=== PATIENT | female | born 1995 | race Caucasian/White ===

== ENCOUNTER 2019-01-25 22:23 | Emergency (ER) | payer SELFPAY ==
[~2019-01-25] VITALS: Ht 175.3 cm; Wt 114.3 kg
[2019-01-25 22:25] VITALS: BP 131/70
[2019-01-25] MEDS ORDERED: HYDR-3165 PO (23:28)
[2019-01-25] MEDS ORDERED: CLIN150C14 PO (23:28)
--- NOTE | 2019-01-25 23:28 | PHYS DOC ---
Past History Past Medical History: Anemia Past Surgical History: Tonsillectomy Smoking: Non-smoker Alcohol Use: None Drug Use: None Adult General Chief Complaint Chief Complaint: ABSCESS HPI HPI Patient is a 24 year old female who presents with complaint of pain and swelling to the anterior neck. Patient noted pain and discomfort over the past 2 days. Noted that there was a small knot below her chin on her anterior neck that increased in size starting this morning. Also noticed increasing redness and pain to the affected area. She states yesterday she went to [facility] emergency department for evaluation of sore throat and generalized malaise. Patient evaluated and released. States she was not placed on antibiotics or other medications at that time. Notes that the affected area is painful. Has not noted any drainage from this area yet. Review of Systems Review of Systems Constitutional: Denies fever or chills [] Eyes: Denies change in visual acuity, redness, or eye pain [] HENT: Sore throat[] Respiratory: Denies cough or shortness of breath [] Cardiovascular: Denies chest pain or edema[] GI: Denies abdominal pain, nausea, vomiting, bloody stools or diarrhea [] : Denies dysuria or hematuria [] Musculoskeletal: Denies back pain or joint pain [] Integument: Abscess on neck[] Neurologic: Denies headache, focal weakness or sensory changes [] All other systems were reviewed and found to be within normal limits, except as documented in this note. Current Medications Current Medications Current Medications Medications (Trade) Dose Ordered Sig/Alex Start Time Stop Time Status Last Admin Dose Admin Clindamycin HCl (Cleocin) 450 mg 1X ONCE 01/25/19 23:30 01/25/19 23:31 01/25/19 23:22 450 MG Allergies Allergies Allergies Coded Allergies Type Severity Reaction Last Updated Verified Penicillins Allergy Intermediate 01/25/19 Yes amoxicillin Allergy Intermediate 01/25/19 Yes clavulanic acid Allergy Intermediate 01/25/19 Yes Physical Exam Physical Exam Constitutional: Well developed, well nourished, no acute distress, non-toxic appearance. [] HENT: Normocephalic, atraumatic, bilateral external ears normal, oropharynx moist, no sublingual tenderness or edema, no oral exudates, nose normal. [] Eyes: PERRLA, EOMI, conjunctiva normal, no discharge. [] Neck: 1.5 cm superficial fluctuant lesion with surrounding erythema to the anterior neck just below the chin and above larynx, minimal surrounding induration, tender to palpation, neck range of motion is normal, supple, no stridor. [] Cardiovascular:Heart rate regular rhythm, no murmur [] Lungs & Thorax: Bilateral breath sounds clear to auscultation [] Abdomen: Bowel sounds normal, soft, no tenderness, no masses, no pulsatile masses. [] Skin: Warm, dry, no erythema, no rash. [] Back: No tenderness, no CVA tenderness. [] Extremities: No tenderness, no cyanosis, no clubbing, ROM intact, no edema. [] Neurologic: Alert and oriented X 3, normal motor function, normal sensory function, no focal deficits noted. [] Current Patient Data Vital Signs Vital Signs Date Time Temp Pulse Resp B/P (MAP) Pulse Ox O2 Delivery O2 Flow Rate FiO2 01/25/19 22:25 98.4 108 18 98 Room Air Lab Results Not performed EKG EKG Not performed[] Radiology/Procedures Radiology/Procedures Not performed[] Course & Med Decision Making Course & Med Decision Making Pertinent Labs and Imaging studies reviewed. (See chart for details) Patient has a small superficial abscess to the anterior neck likely secondary to blocked sebaceous gland or possible hair follicle. As the abscess appears superficial, I have recommended non-incision treatment with application of warm compresses and initiation of antibiotic therapy. Patient was started on clindamycin in the emergency department. Advised to use warm compresses to the affected area at least 3 times daily to help induce spontaneous drainage through the surface of the skin. Recommended follow-up in 2 days with primary doctor for reevaluation. Recommended return to the emergency department for any worsening symptoms. Patient voiced understanding and agreement with treatment plan. Dragon Disclaimer Dragon Disclaimer This electronic medical record was generated, in whole or in part, using a voice recognition dictation system. Departure Departure: Impression: Primary Impression: Skin abscess Disposition: 01 HOME, SELF-CARE Condition: STABLE Referrals: PCP,NO (PCP) Patient Instructions: Abscess Additional Instructions: You were started on antibiotics in the emergency department. Your abscess is superficial and is expected to start draining on its own through the skin. It is recommended that you apply warm compresses such as a warm washcloth to the affected area for 15-20 minutes at a time at least 3 times daily to help infection come through the surface of the skin. You will need to follow-up in the next 2 days to have this reevaluated. You may follow-up with your primary doctor or if necessary return to the emergency department. Return to the emergency department immediately for any worsening or severe symptoms. Scripts Hydrocodone Bit/Acetaminophen (NORCO 5-325 TABLET) 1 Each Tablet 1 TAB PO Q6HRS PRN for PAIN, #12 TAB Prov: RAJWINDER WHITEHEAD MD 01/25/19 Clindamycin Hcl (CLINDAMYCIN HCL) 150 Mg Capsule 450 MG PO TID for 7 Days, #63 CAP Prov: RAJWINDER WHITEHEAD MD 01/25/19 Problem Qualifiers Primary Impression: Skin abscess Site of cutaneous abscess: neck Qualified Codes: L02.11 - Cutaneous abscess of neck RAJWINDER WHITEHEAD MD Jan 25, 2019 23:28
[2019-01-25] MEDS ORDERED: CLINDAMYCIN HCL 150 MG CAPSULE PO ONE (23:30)
== END 2019-01-25 23:33 | disposition home or self-care (01) ==
LOC: ER 22:23
DX: L02.11 Cutaneous abscess of neck (principal); Z86.2 Personal history of diseases of the blood and blood-forming organs and certain disorders involving the immune mechanism; Z90.89 Acquired absence of other organs; Z88.0 Allergy status to penicillin; Z88.1 Allergy status to other antibiotic agents
CPT/HCPCS: 99283

== ENCOUNTER 2019-04-25 17:15 | Emergency (ER) | payer SELFPAY ==
[~2019-04-25] VITALS: Ht 175.3 cm; Wt 97.0 kg
[~2019-04-25 17:15] MED LIST: CLIN150C14 PO; HYDR-3165 PO
--- NOTE | 2019-04-25 17:40 | PHYS DOC ---
Past History Past Medical History: Anemia, Migraines (SENDY JULIEN DO) Past Surgical History: Tonsillectomy (SENDY JULIEN DO) Smoking: Non-smoker Alcohol Use: None Drug Use: None (SENDY JULIEN DO) Adult General Chief Complaint Chief Complaint: HEADACHE HPI HPI 24-year-old female presents with migraine headache. The patient's headache started this morning. She attempted to take Excedrin without relief. Headache is around the left jewish and left thigh. It is a throbbing sensation. This is similar to her most recent few migraine headaches. She usually only gets these with her menstrual cycle. This was 2 weeks ago. This is her third or fourth day in a row with a migraine headache. She does take Imitrex sometimes, but did not take any today. She denies trauma, falls, fever, or chills. He is no other complaints at this time. (SENDY JULIEN DO) Review of Systems Review of Systems Constitutional: Denies fever or chills [] Eyes: Denies redness, or eye pain [] HENT: Denies nasal congestion or sore throat [] Respiratory: Denies cough or shortness of breath [] Cardiovascular: No additional information not addressed in HPI [] GI: Denies abdominal pain, nausea, vomiting, bloody stools or diarrhea [] : Denies dysuria or hematuria [] Musculoskeletal: Denies back pain or joint pain [] Integument: Denies rash or skin lesions [] Neurologic: Headache. Denies focal weakness or sensory changes [] Endocrine: Denies polyuria or polydipsia [] All other systems were reviewed and found to be within normal limits, except as documented in this note. (SENDY JULIEN DO) Current Medications Current Medications Current Medications Medications (Trade) Dose Ordered Sig/Alex Start Time Stop Time Status Last Admin Dose Admin Diphenhydramine HCl (Benadryl) 25 mg 1X ONCE 04/25/19 17:45 04/25/19 17:46 Ketorolac Tromethamine (Toradol 30mg Vial) 30 mg 1X ONCE 04/25/19 17:45 04/25/19 17:46 Metoclopramide HCl (Reglan Vial) 10 mg 1X ONCE 04/25/19 17:45 04/25/19 17:46 Sodium Chloride 1,000 ml @ 1,000 mls/hr 1X ONCE 04/25/19 17:45 04/25/19 18:44 (SENDY JULIEN DO) Allergies Allergies Allergies Coded Allergies Type Severity Reaction Last Updated Verified Penicillins Allergy Intermediate 01/25/19 Yes amoxicillin Allergy Intermediate 01/25/19 Yes clavulanic acid Allergy Intermediate 01/25/19 Yes (SENDY JULIEN DO) Physical Exam Physical Exam Constitutional: Well developed, well nourished, no acute distress, non-toxic appearance. [] HENT: Normocephalic, atraumatic, bilateral external ears normal, oropharynx moist, no oral exudates, nose normal. [] Eyes: Photophobia. PERRLA, EOMI, conjunctiva normal, no discharge. [] Neck: Normal range of motion, no tenderness, supple, no stridor. [] Cardiovascular:Heart rate regular rhythm, no murmur [] Lungs & Thorax: Bilateral breath sounds clear to auscultation [] Abdomen: Bowel sounds normal, soft, no tenderness, no masses, no pulsatile masses. [] Skin: Warm, dry, no erythema, no rash. [] Back: No tenderness, no CVA tenderness. [] Extremities: No tenderness, no cyanosis, no clubbing, ROM intact, no edema. [] Neurologic: Alert and oriented X 3, normal motor function, normal sensory function, no focal deficits noted. [] Psychologic: Affect tired, frustrated, judgement normal, mood normal. [] (SENDY JULIEN DO) Current Patient Data Vital Signs Vital Signs Date Time Temp Pulse Resp B/P (MAP) Pulse Ox O2 Delivery O2 Flow Rate FiO2 04/25/19 17:28 105 18 141/93 (109) 100 (SENDY JULIEN DO) EKG EKG [] (SENDY JULIEN DO) Radiology/Procedures Radiology/Procedures [] (SENDY JULIEN DO) Impressions: Examination: CT HEAD WO CONTRAST History: Headache for one week Comparison/Correlation: None Findings: Axial images of the head were obtained without contrast. Ventricles are normal size. No intracranial hemorrhage, midline shift, or mass effect. Globes and optic nerves are unremarkable. Orbits are unremarkable. Bony structures are unremarkable. Minimal patchy opacification of ethmoid air cells. Impression: No acute process. PQRS Compliance Statement: One or more of the following individualized dose reduction techniques were utilized for this examination: 1. Automated exposure control 2. Adjustment of the mA and/or kV according to patient size 3. Use of iterative reconstruction technique Electronically signed by: Danny Boyd MD (04/25/2019 7:35 PM) [facility] (JOSÉ JO Jr. DO) Course & Med Decision Making Course & Med Decision Making Pertinent Labs and Imaging studies reviewed. (See chart for details) For her headache, given the patient a liter normal saline, 10 mg of Reglan, 30 mg Toradol, 25 mg of Benadryl. The patient's workup is pending. I'm signing the patient out to Dr. Jo at 1800. He will follow-up and determine her final disposition.[] (SENDY JULIEN DO) Dragon Disclaimer Dragon Disclaimer This electronic medical record was generated, in whole or in part, using a voice recognition dictation system. (SENDY JULIEN DO) Departure Departure: Impression: Primary Impression: Migraine headache without aura Disposition: HOME, SELF-CARE Condition: STABLE Referrals: PCP,NO (PCP) Patient Instructions: Migraine Headache Problem Qualifiers Primary Impression: Migraine headache without aura Status migrainosus presence: without status migrainosus Intractability: intractable Qualified Codes: G43.019 - Migraine without aura, intractable, without status migrainosus SENDY JULIEN DO Apr 25, 2019 17:40 JOSÉ JO Jr., DO Apr 25, 2019 19:50
[2019-04-25] MEDS ORDERED: diphenhydrAMINE 50 MG/ML VIAL IVP ONE (17:45)
[2019-04-25] MEDS ORDERED: METOCLOPRAMIDE HCL 10 MG/2 ML VIAL. IVP ONE (17:45)
[2019-04-25] MEDS ORDERED: IV NORMAL SALINE 1,000ML 1,000 ML IV ONE (17:45)
[2019-04-25] MEDS ORDERED: KETOROLAC 30 MG/ML VIAL. IVP ONE (17:45)
[2019-04-25 18:00] LABS: BASO # 0.1 x10^3/uL (0.0-0.2); BASO % 1 % (0-3); EOS # 0.1 x10^3/uL (0.0-0.7); EOS % 1 % (0-3); HEMATOCRIT 39.3 % (36.0-47.0); HEMOGLOBIN 12.3 g/dL (12.0-15.5); LYMPH # 3.7 x10^3/uL (1.0-4.8); LYMPH % 30 % (24-48); MEAN CORPUSCULAR HEMOGLOBIN 24 pg (25-35); MEAN CORPUSCULAR HGB CONC 31 g/dL (31-37); MEAN CORPUSCULAR VOLUME 76 fL (79-100); MONO # 0.9 x10^3/uL (0.0-1.1); MONO % 7 % (0-9); NEUT # 7.6 x10^3uL (1.8-7.7); NEUT % 61 % (31-73); PLATELET COUNT 366 x10^3/uL (140-400); RED BLOOD COUNT 5.18 x10^6/uL (3.50-5.40); RED CELL DISTRIBUTION WIDTH 16.3 % (11.5-14.5); WHITE BLOOD COUNT 12.4 x10^3/uL (4.0-11.0)
[2019-04-25 18:11] LABS: BILIRUBIN,URINE NEG (NEG); CLARITY,URINE HAZY; COLOR,URINE YELLOW; GLUCOSE,URINE NEG (NEG); NITRITE,URINE NEG (NEG); UROBILINOGEN,URINE 0.2 mg/dL (0.2 mg/dL)
[2019-04-25 18:12] LABS: BACTERIA,URINE FEW /HPF (0-FEW); CALCIUM 8.6 mg/dL (8.5-10.1); CREATININE 0.6 mg/dL (0.6-1.0); POTASSIUM 3.9 mmol/L (3.5-5.1); RBC,URINE OCC /HPF (0-2); SQUAMOUS EPITHELIAL CELL,UR MOD /LPF; WBC,URINE OCC /HPF (0-4)
[2019-04-25 18:18] LABS: ALBUMIN 3.5 g/dL (3.4-5.0); ALBUMIN/GLOBULIN RATIO 0.8 (1.0-1.7); TOTAL BILIRUBIN 0.2 mg/dL (0.2-1.0); TOTAL PROTEIN 8.1 g/dL (6.4-8.2)
[2019-04-25] MEDS ORDERED: BUTORPHANOL 2 MG VIAL. IV ONE (19:15)
[2019-04-25] MEDS ORDERED: SUMAtriptan SUCC 6 MG/0.5 ML VIAL SQ ONE (19:15)
--- NOTE | 2019-04-25 19:38 | RAD ---
Examination: CT HEAD WO CONTRAST History: Headache for one week Comparison/Correlation: None Findings: Axial images of the head were obtained without contrast. Ventricles are normal size. No intracranial hemorrhage, midline shift, or mass effect. Globes and optic nerves are unremarkable. Orbits are unremarkable. Bony structures are unremarkable. Minimal patchy opacification of ethmoid air cells. Impression: No acute process. PQRS Compliance Statement: One or more of the following individualized dose reduction techniques were utilized for this examination: 1. Automated exposure control 2. Adjustment of the mA and/or kV according to patient size 3. Use of iterative reconstruction technique Electronically signed by: Danny Boyd MD (04/25/2019 7:35 PM) [facility]
[2019-04-25 19:56] VITALS: BP 120/74
== END 2019-04-25 19:58 | disposition home or self-care (01) ==
LOC: ER 17:15
DX: G43.019 Migraine without aura, intractable, without status migrainosus (principal); Z88.0 Allergy status to penicillin; Z88.1 Allergy status to other antibiotic agents; Z88.8 Allergy status to other drugs, medicaments and biological substances
CPT/HCPCS: 36415; 70450; 80053; 81001; 81025; 85025; 96374; 96375; 99285; J1200; J1885; J2765; J7030

== ENCOUNTER 2019-05-05 10:17 | Emergency (ER) | payer SELFPAY ==
[~2019-05-05] VITALS: Ht 172.7 cm; Wt 95.5 kg
--- NOTE | 2019-05-05 10:42 | PHYS DOC ---
Past History Past Medical History: Anemia, Migraines Past Surgical History: Tonsillectomy Smoking: Non-smoker Alcohol Use: None Drug Use: None Adult General Chief Complaint Chief Complaint: EARACHE/EAR PAIN [facility] HPI 24-year-old female presents with left earache and left temporal headache. Patient has a history of migraines. I saw her in the emergency room weeks ago for migraine. The patient is not sure was going on. She's been having headaches nearly every day for almost a month. She usually only gets her migraines during her menstrual cycle. She has not had a menstrual cycle at least a month. She has had negative tests. The only other time she had headaches like this was after the of each of her 2 children. She also feels a significant fullness in the left ear. The area around the ear is tender to palpation. She denies any problems with teeth. Review of Systems Review of Systems Constitutional: Denies fever or chills [] Eyes: Denies change in visual acuity, redness, or eye pain [] HENT: Left ear pain. Denies nasal congestion or sore throat [] Respiratory: Denies cough or shortness of breath [] Cardiovascular: No additional information not addressed in HPI [] GI: Denies abdominal pain, nausea, vomiting, bloody stools or diarrhea [] : Denies dysuria or hematuria [] Musculoskeletal: Denies back pain or joint pain [] Integument: Denies rash or skin lesions [] Neurologic: Headache. Denies focal weakness or sensory changes [] Endocrine: Denies polyuria or polydipsia [] All other systems were reviewed and found to be within normal limits, except as documented in this note. Allergies Allergies Allergies Coded Allergies Type Severity Reaction Last Updated Verified Penicillins Allergy Intermediate 05/05/19 Yes amoxicillin Allergy Intermediate 05/05/19 Yes clavulanic acid Allergy Intermediate 05/05/19 Yes Physical Exam Physical Exam Constitutional: Well developed, well nourished, no acute distress, non-toxic appearance. [] HENT: Normocephalic, atraumatic, bilateral external ears normal, oropharynx moist, no oral exudates, nose normal. Bilateral tympanic membranes normamild[] Eyes: PERRLA, EOMI, conjunctiva normal, no discharge. [] Neck: Normal range of motion, no tenderness, supple, no stridor. [] Cardiovascular:Heart rate regular rhythm, no murmur [] Lungs & Thorax: Bilateral breath sounds clear to auscultation [] Abdomen: Bowel sounds normal, soft, no tenderness, no masses, no pulsatile masses. [] Skin: Warm, dry, no erythema, no rash. [] Back: No tenderness, no CVA tenderness. [] Extremities: No tenderness, no cyanosis, no clubbing, ROM intact, no edema. [] Neurologic: Alert and oriented X 3, normal motor function, normal sensory function, no focal deficits noted. [] Psychologic: Affect concerned, judgement normal, mood normal. [] EKG EKG [] Radiology/Procedures Radiology/Procedures [] Course & Med Decision Making Course & Med Decision Making Pertinent Labs and Imaging studies reviewed. (See chart for details) Or her headache, given the patient a liter normal saline, 10 mg Reglan, 25 mg Benadryl, 30 mg of Toradol, and 10 mg of dexamethasone IV. Her labs are unremarkable. Her urinalysis is suggestive of a UTI. I will discharge her with a prescription for Macrobid. Advised the patient may need to see a neurologist of her frequent headaches continue. I'm hoping that the dexamethasone will help break the cycle. She is stable for discharge at this time. [] Dragon Disclaimer Dragon Disclaimer This electronic medical record was generated, in whole or in part, using a voice recognition dictation system. Departure Departure: Impression: Primary Impression: Headache Additional Impression: Urinary tract infection Disposition: HOME, SELF-CARE Condition: IMPROVED Referrals: PCP,NO (PCP) Patient Instructions: Urinary Tract Infection, [id number] Scripts Nitrofurantoin Monohyd/M-Cryst (MACROBID 100 MG CAPSULE) 100 Mg Capsule 1 CAP PO BID for UTI for 5 Days, #10 CAP 0 Refills Prov: SENDY JULIEN DO 05/05/19 Problem Qualifiers Primary Impression: Headache Headache type: other vascular headache Qualified Codes: G44.1 - Vascular headache, not elsewhere classified Additional Impression: Urinary tract infection Urinary tract infection type: acute cystitis Hematuria presence: with hematuria Qualified Codes: N30.01 - Acute cystitis with hematuria SENDY JULIEN DO May 05, 2019 10:42
[2019-05-05] MEDS ORDERED: DEXAMETHASONE SOD PHOS 10 MG/ML VIAL IV ONE (10:45)
[2019-05-05] MEDS ORDERED: KETOROLAC 30 MG/ML VIAL. IVP ONE (10:45)
[2019-05-05] MEDS ORDERED: METOCLOPRAMIDE HCL 10 MG/2 ML VIAL. IVP ONE (10:45)
[2019-05-05] MEDS ORDERED: IV NORMAL SALINE 1,000ML 1,000 ML IV ONE (10:45)
[2019-05-05] MEDS ORDERED: diphenhydrAMINE 50 MG/ML VIAL IVP ONE (10:45)
[2019-05-05 11:03] LABS: BASO % 1 % (0-3); EOS # 0.2 x10^3/uL (0.0-0.7); EOS % 4 % (0-3); HEMATOCRIT 39.2 % (36.0-47.0); HEMOGLOBIN 12.5 g/dL (12.0-15.5); LYMPH # 2.2 x10^3/uL (1.0-4.8); LYMPH % 38 % (24-48); MEAN CORPUSCULAR HEMOGLOBIN 24 pg (25-35); MEAN CORPUSCULAR HGB CONC 32 g/dL (31-37); MEAN CORPUSCULAR VOLUME 76 fL (79-100); MONO # 0.7 x10^3/uL (0.0-1.1); MONO % 13 % (0-9); NEUT # 2.6 x10^3uL (1.8-7.7); NEUT % 45 % (31-73); PLATELET COUNT 272 x10^3/uL (140-400); RED BLOOD COUNT 5.17 x10^6/uL (3.50-5.40); RED CELL DISTRIBUTION WIDTH 16.2 % (11.5-14.5); WHITE BLOOD COUNT 5.8 x10^3/uL (4.0-11.0)
[2019-05-05 11:09] LABS: CALCIUM 8.4 mg/dL (8.5-10.1); CREATININE 0.7 mg/dL (0.6-1.0); GFR 104.6; POTASSIUM 3.6 mmol/L (3.5-5.1)
[2019-05-05 11:15] LABS: ALBUMIN 3.4 g/dL (3.4-5.0); ALBUMIN/GLOBULIN RATIO 0.7 (1.0-1.7); TOTAL BILIRUBIN 0.2 mg/dL (0.2-1.0)
[2019-05-05 12:11] LABS: BILIRUBIN,URINE NEG (NEG); CLARITY,URINE TURBID; COLOR,URINE YELLOW; GLUCOSE,URINE NEG (NEG); NITRITE,URINE NEG (NEG); UROBILINOGEN,URINE 0.2 mg/dL (0.2 mg/dL)
[2019-05-05 12:12] LABS: BACTERIA,URINE MOD /HPF (0-FEW); SQUAMOUS EPITHELIAL CELL,UR MANY /LPF
[2019-05-05 12:18] LABS: INFLUENZA A PATIENT NEGATIVE (NEGATIVE); INFLUENZA B PATIENT NEGATIVE (NEGATIVE)
[2019-05-05] MEDS ORDERED: NITR100C62 PO (12:49)
[2019-05-05 13:20] VITALS: BP 126/97
== END 2019-05-05 13:17 | disposition home or self-care (01) ==
LOC: ER 10:17
DX: R51 Headache (principal); N39.0 Urinary tract infection, site not specified; H92.02 Otalgia, left ear; Z88.0 Allergy status to penicillin; Z88.1 Allergy status to other antibiotic agents; Z88.8 Allergy status to other drugs, medicaments and biological substances; Z90.89 Acquired absence of other organs
CPT/HCPCS: 36415; 80053; 81001; 81025; 85025; 87086; 87804; 96374; 96375; 99284; J1100; J1200; J1885; J2765; J7030

== ENCOUNTER 2020-05-20 12:04 | Emergency (ER) | payer SELFPAY ==
[~2020-05-20] VITALS: Ht 175.3 cm; Wt 100.0 kg
[~2020-05-20 12:04] MED LIST changes: -CLIN150C14 PO; +CLIN150C15 PO; +NITR100C62 PO
--- NOTE | 2020-05-20 12:35 | PHYS DOC ---
Past History Past Medical History: Anemia, Migraines Past Surgical History: Tonsillectomy Smoking: Non-smoker Alcohol Use: None Drug Use: None Adult General Chief Complaint Chief Complaint: VAGINAL BLEEDING HPI HPI Patient is a 25-year-old female presents to the emergency department complaining of vaginal spotting. Patient states that she had a confirmed home test last week, noting her last menstrual cycle started the final week in February and ended within the first few days of March, noting that she cannot remember the exact dates. This is the patient's third , reports having no problems with first , however second reported needing iron infusions towards the end of the second also stated second presented in breech during labor, denies any other problems with pregnancies. Patient states she noticed light pink spots intermittently after wiping during urination yesterday. Patient described an episode that felt like early. Cramping that resolved today, states that after urination she noticed a light pink clumpy tissue when she wiped. Patient currently denies abdominal pain, or abdominal cramping, denies nausea vomiting or diarrhea or constipation. Patient denies burning with urination, denies vaginal discharge at this time, denies STI concerns. Patient denies chest pain, shortness of breath, rashes of the skin. Patient states that she would like to have a confirmation of so that she can obtain insurance. Review of Systems Review of Systems 14 body systems of review of systems have been reviewed. See HPI for pertinent positives and negative responses, otherwise all other systems are negative, nonpertinent or noncontributory. Allergies Allergies Allergies Coded Allergies Type Severity Reaction Last Updated Verified Penicillins Allergy Intermediate 05/05/19 Yes amoxicillin Allergy Intermediate 05/05/19 Yes clavulanic acid Allergy Intermediate 05/05/19 Yes Physical Exam Physical Exam Constitutional: Well developed, well nourished, no acute distress, non-toxic appearance. HENT: Normocephalic, atraumatic, bilateral external ears normal, oropharynx moist, no oral exudates, nose normal. Eyes: PERRLA, EOMI, conjunctiva normal, no discharge. Neck: Normal range of motion, no tenderness, supple, no stridor. Cardiovascular:Heart rate regular rhythm, no murmur Lungs & Thorax: Bilateral breath sounds clear to auscultation Abdomen: Bowel sounds normal, soft, no tenderness, no masses, no pulsatile masses. Skin: Warm, dry, no erythema, no rash. Back: No tenderness, no CVA tenderness. Extremities: No tenderness, no cyanosis, no clubbing, ROM intact, no edema. Neurologic: Alert and oriented X 3, normal motor function, normal sensory function, no focal deficits noted. Psychologic: Affect normal, judgement normal, mood normal. : Current Patient Data Vital Signs Vital Signs Date Time Temp Pulse Resp B/P (MAP) Pulse Ox O2 Delivery O2 Flow Rate FiO2 05/20/20 12:07 97.6 109 16 130/80 (97) 96 Room Air Lab Results Laboratory Tests Test 05/20/20 12:25 05/20/20 12:37 05/20/20 12:54 Urine Collection Type Unknown Urine Color Yellow Urine Clarity Cloudy Urine pH 6.0 Urine Specific [place] >=1.030 Urine Protein Trace Urine Glucose (UA) Neg mg/dL Urine Ketones (Stick) Neg mg/dL Urine Blood Trace Urine Nitrite Neg Urine Bilirubin Neg Urine Urobilinogen Dipstick 0.2 mg/dL Urine Leukocyte Esterase Small Urine RBC 3-5 /HPF Urine WBC 5-10 /HPF Urine Squamous Epithelial Cells Many /LPF Urine Bacteria Mod /HPF Urine Mucus Mod /LPF Bedside Urine HCG, Qualitative hcg positive Maternal Serum HCG Beta Subunit 4757 mIU/mL EKG EKG [] Radiology/Procedures Radiology/Procedures PATIENT: AVEL CLAYTON ACCOUNT: [id number] : 1995 LOCATION: ER AGE: 25 SEX: F EXAM STATUS: REG ER ORD. PHYSICIAN: TYRESE BARROS APRN REASON: VAGINAL BLEEDING WITH CRAMPING ESTIMATED GESTATION 8 WEEKS PROCEDURE: OB <14 WKS W/TV INDICATION: Reason: VAGINAL BLEEDING WITH CRAMPING ESTIMATED GESTATION 8 WEEKS / Spl. Instructions: / History: COMPARISON: None TECHNIQUE: Grayscale and color ultrasound images uterus and adnexa. Transabdo price and transvaginal images obtained. Transvaginal images were needed to better visualize structures that were limited on transabdominal imaging. FINDINGS: Uterus: 102 x 63 x 52 mm. Cystic structure within the endometrial stripe is identified with a small adjacent hypoechoic region. No definite pole is seen within the cystic structure. There is some heterogenous material near the cervix. Cystic structure within the endometrial stripe measures approximately 9 mm. Left maternal ovary is not visualized. Right maternal ovary is 30 x 29 x 27 mm. Vascular flow is seen IMPRESSION: * Cystic structure within the endometrial stripe which could be from an early gestational sac. There is no pole seen at this time. Small hypoechoic region could be secondary to adjacent subchorionic hematoma. * Complex cystic region is seen at the cervix. This could be related to nabothi an cyst formation as well as debris within the area such as blood but can be followed on future examinations Electronically signed by: Gaston Freire MD (05/20/2020 2:16 PM) [id number] DICTATED AND SIGNED BY: GASTON FREIRE MD DATE: 05/20/20 1407 CC: TYRESE BARROS APRN; PCP,NO; RAJWINDER HOLCOMB MD ~MTH0 0 Heart Score Risk Factors: Risk Factors: DM, Current or recent (<one month) smoker, HTN, HLP, family history of CAD, obesity. Risk Scores: Risk Factors: DM, Current or recent (<one month) smoker, HTN, HLP, family history of CAD, obesity. Course & Med Decision Making Course & Med Decision Making Pertinent Labs and Imaging studies reviewed. (See chart for details) 25-year-old female, vital signs reviewed, presents emergency department complaining of vaginal spotting intermittently started yesterday. Patient's physical exam was unremarkable, refused vaginal speculum exam reporting that she is not spotting at this time and worries that it might disrupt her . Patient states that she would like to have a confirmation of today so that she can obtain insurance. ED plan, will confirm . Urine pregnanc y, send urine for urinalysis assay, draw beta-hCG level if urine positive, will obtain pelvic ultrasound OB less than 14 weeks to rule out ectopic related to cramping feeling patient experienced. Urine positive, will order OB less than 14 weeks ultrasound with transvaginal, hCG quant pending, urine assay pending. Patient's urine was infected, will start on p.o. Keflex for urinary tract infection. Patient's ultrasound complete, possible early , discussed findings with patient, patient states that she could be very early in her , patient's type and screen showed O+, no RhoGam injection indicated. Patient gave verbal understanding of discharge home instructions, will follow up with OB soon for reexamination of hCG and . Patient gave verbal understanding of return ER precautions and concerns, patient was discharged home without incident. Dragon Disclaimer Dragon Disclaimer This electronic medical record was generated, in whole or in part, using a voice recognition dictation system. Departure Departure: Impression: Primary Impression: Threatened miscarriage Additional Impression: Urinary tract infection Disposition: 01 DC HOME SELF CARE/HOMELESS Condition: GOOD Referrals: PCP,NO (PCP) Patient Instructions: - Urinary Tract Infection, Threatened Miscarriage Additional Instructions: Please take medications as prescribed, please follow-up with an OB soon for a recheck of your beta hCG, your beta hCG level today was 4757, please return to the emergency department for worsening symptoms or other concerns. EMERGENCY DEPARTMENT GENERAL DISCHARGE INSTRUCTIONS Thank you for coming to [facility] (ED) today and trusting us with you care. We trust that you had a positivie experience in our Emergency Department. If you wish to speak to the department management, you may call the director at [phone]. YOUR FOLLOW UP INSTRUCTIONS ARE FOLLOWS: 1. Do you have a private Doctor? If you do not have a private doctor, please ask for a resource list of physicians or clinics that may be able to assist you with follow up care. 2. The Emergency Physician has interpreted your x-rays. The X-Ray specialist will also review them. If there is a change in the findings, you will be notified in 48 hours when at all possible. 3. A lab test or culture has been done, your results will be reviewed and you will be notified if you need a change in treatment. ADDITIONAL INSTRUCTIONS AND INFORMATION: 1. Your care today has been supervised by a physician who is specially trained in emergency care. Many problems require more than one evaluation for a complete diagnosis and treatment. We recommend that you schedule your follow up appointment as recommended to ensure complete treatment of you illness or injury. If you are unable to obtain follow up care and continue to have a problem, or if your condition worsens, we recommend that you return to the ED. 2. We are not able to safely determine your condition over the phone nor are we able to give sound medical advice over the phone. For these safety reasons, if you call for medical advice we will ask you to come to the ED for further evaluation. 3. If you have any questions regarding these discharge instructions please call the ED at [phone]. SAFETY INFORMATION: In the interest of safety, wellness, and injury prevention; we encourage you to wear your sealbelt, if you smoke; quite smoking, and we encourage family to use a protective helmet for bicycling and other sporting events that present an increased risk for head injury. IF YOUR SYMPTOMS WORSEN OR NEW SYMPTOMS DEVELOP, OR YOU HAVE CONCERNS ABOUT YOUR CONDITION; OR IF YOUR CONDITION WORSENS WHILE YOU ARE WAITING FOR YOUR FOLLOW UP APPOINTMENT; EITHER CONTACT YOUR PRIMARY CARE DOCTOR, THE PHYSICIAN WHOSE NAME AND NUMBER YOU WERE GIVEN, OR RETURN TO THE ED IMMEDIATELY. Scripts Cmb#95/Iron/Fa/Dha ( + DHA COMBO PACK) 1 Each Combo..pkg 1 TAB PO DAILY for for 30 Days, #30 TAB 0 Refills Prov: TYRESE BARROS APRN 05/20/20 Cephalexin (CEPHALEXIN) 500 Mg Capsule 1 CAP PO TID for URINARY TRACT INFECTION for 7 Days, #21 CAP 0 Refills Prov: TYRESE BARROS APRN 05/20/20 Problem Qualifiers Additional Impression: Urinary tract infection Urinary tract infection type: site unspecified Hematuria presence: with hematuria Qualified Codes: N39.0 - Urinary tract infection, site not specified; R31.9 - Hematuria, unspecified TYRESE BARROS APRN May 20, 2020 12:35
[2020-05-20 13:17] LABS: BACTERIA,URINE MOD /HPF (0-FEW); BILIRUBIN,URINE NEG (NEG); CLARITY,URINE CLOUDY; COLOR,URINE YELLOW; GLUCOSE,URINE NEG (NEG); NITRITE,URINE NEG (NEG); UROBILINOGEN,URINE 0.2 mg/dL (0.2 mg/dL)
[2020-05-20 13:18] LABS: SQUAMOUS EPITHELIAL CELL,UR MANY /LPF
[2020-05-20] MEDS ORDERED: CEPH500C PO (13:32)
[2020-05-20] MEDS ORDERED: PREN1COM PO (13:32)
--- NOTE | 2020-05-20 14:18 | RAD ---
INDICATION: Reason: VAGINAL BLEEDING WITH CRAMPING ESTIMATED GESTATION 8 WEEKS / Spl. Instructi ons: / History: COMPARISON: None TECHNIQUE: Grayscale and color ultrasound images uterus and adnexa. Transabdominal and transvaginal images obtained. Transvaginal images were needed to better visualize structures that were limited on transabdominal imaging. FINDINGS: Uterus: 102 x 63 x 52 mm. Cystic structure within the endometrial stripe is identified with a small adjacent hypoechoic region. No definite pole is seen within the cystic structure. There is some heterogenous material near the cervix. Cystic structure within the endometrial stripe measures approximately 9 mm. Left maternal ovary is not visualized. Right maternal ovary is 30 x 29 x 27 mm. Vascular flow is seen IMPRESSION: * Cystic structure within the endometrial stripe which could be from an early gestational sac. Ther e is no pole seen at this time. Small hypoechoic region could be secondary to adjacent subchori onic hematoma. * Complex cystic region is seen at the cervix. This could be related to nabothian cyst formation as well as debris within the area such as blood but can be followed on future examinations Electronically signed by: Gerry Pereira MD (05/20/2020 2:16 PM) [id number]
[2020-05-20 14:46] VITALS: BP 128/80
== END 2020-05-20 14:44 | disposition home or self-care (01) ==
LOC: ER 12:04
DX: O20.0 Threatened abortion (principal); O23.41 Unspecified infection of urinary tract in pregnancy, first trimester; G43.909 Migraine, unspecified, not intractable, without status migrainosus; O99.111 Other diseases of the blood and blood-forming organs and certain disorders involving the immune mechanism complicating pregnancy, first trimester; Z3A.00 Weeks of gestation of pregnancy not specified; Z88.0 Allergy status to penicillin; Z88.1 Allergy status to other antibiotic agents
CPT/HCPCS: 36415; 76801; 76817; 81001; 81025; 84702; 86850; 86900; 86901; 87086; 99284

== ENCOUNTER 2020-05-25 00:09 | Emergency (ER) | payer MEDICAID, OTHER ==
[~2020-05-25] VITALS: Ht 175.3 cm; Wt 117.0 kg
[~2020-05-25 00:09] MED LIST changes: +CEPH500C PO; +PREN1COM PO
--- NOTE | 2020-05-25 00:32 | PHYS DOC ---
Past History Past Medical History: Anemia, Migraines Past Surgical History: Tonsillectomy Smoking: Non-smoker Alcohol Use: None Drug Use: None Adult General HPI HPI Patient is a 25-year-old female at approximately 7 weeks by home test who presents to the emergency department with a 3-day history of vaginal spotting and intermittent cramping. Denies any recent travel, traumas, illnesses, fevers, chest pain, shortness of breath, other abdominal pain, nausea, vomiting, dysuria, diarrhea or blood in the stool. Denies history of STIs, vaginal discharge, genital lesions or other discharge. Review of Systems Review of Systems Review of systems otherwise unremarkable except noted in HPI Allergies Allergies Allergies Coded Allergies Type Severity Reaction Last Updated Verified Penicillins Allergy Intermediate 05/05/19 Yes amoxicillin Allergy Intermediate 05/05/19 Yes clavulanic acid Allergy Intermediate 05/05/19 Yes Physical Exam Physical Exam Constitutional: Well developed, well nourished, no acute distress, non-toxic appearance. [] HENT: Normocephalic, atraumatic, bilateral external ears normal, oropharynx moist, no oral exudates, nose normal. [] Eyes: conjunctiva normal, no discharge. [] Neck: Normal range of motion, no tenderness, supple, no stridor. [] Cardiovascular:Heart rate regular rhythm, no murmur [] Lungs & Thorax: Bilateral breath sounds clear to auscultation [] Abdomen: soft, no tenderness, no masses, no pulsatile masses. : Pelvic exam with no blood, tenderness or discharge. Cervical os closed. [] Skin: Warm, dry, no erythema, no rash. [] Back: no CVA tenderness. [] Extremities: No tenderness, no cyanosis, no clubbing, ROM intact, no edema. [] Neurologic: Alert and oriented X 3, normal motor function, normal sensory function, no focal deficits noted. [] Psychologic: Affect normal, judgement normal, mood normal. [] Current Patient Data Lab Results Laboratory Tests Test 05/25/20 00:25 White Blood Count 16.1 x10^3/uL (4.0-11.0) Red Blood Count 5.13 x10^6/uL (3.50-5.40) Hemoglobin 13.1 g/dL (12.0-15.5) Hematocrit 40.5 % (36.0-47.0) Mean Corpuscular Volume 79 fL (79-100) Mean Corpuscular Hemoglobin 25 pg (25-35) Mean Corpuscular Hemoglobin Concent 32 g/dL (31-37) Red Cell Distribution Width 15.0 % (11.5-14.5) Platelet Count 330 x10^3/uL (140-400) Neutrophils (%) (Auto) 67 % (31-73) Lymphocytes (%) (Auto) 25 % (24-48) Monocytes (%) (Auto) 6 % (0-9) Eosinophils (%) (Auto) 1 % (0-3) Basophils (%) (Auto) 1 % (0-3) Neutrophils # (Auto) 10.8 x10^3uL (1.8-7.7) Lymphocytes # (Auto) 4.1 x10^3/uL (1.0-4.8) Monocytes # (Auto) 1.0 x10^3/uL (0.0-1.1) Eosinophils # (Auto) 0.2 x10^3/uL (0.0-0.7) Basophils # (Auto) 0.1 x10^3/uL (0.0-0.2) Urine Collection Type Unknown Urine Color Pia Urine Clarity Clear Urine pH 6.0 Urine Specific [place] 1.025 Urine Protein Neg (NEG-TRACE) Urine Glucose (UA) Neg mg/dL (NEG) Urine Ketones (Stick) Neg mg/dL (NEG) Urine Blood Large (NEG) Urine Nitrite Neg (NEG) Urine Bilirubin Neg (NEG) Urine Urobilinogen Dipstick 0.2 mg/dL (0.2 mg/dL) Urine Leukocyte Esterase Mod (NEG) Urine RBC 11-20 /HPF (0-2) Urine WBC 5-10 /HPF (0-4) Urine Squamous Epithelial Cells Many /LPF Urine Bacteria Few /HPF (0-FEW) Maternal Serum HCG Beta Subunit 85762 mIU/mL (0-6) Sodium Level 138 mmol/L (136-145) Potassium Level 3.6 mmol/L (3.5-5.1) Chloride Level 104 mmol/L (98-107) Carbon Dioxide Level 22 mmol/L (21-32) Anion Gap 12 (6-14) Blood Urea Nitrogen 9 mg/dL (7-20) Creatinine 0.7 mg/dL (0.6-1.0) Estimated GFR (Cockcroft-Gault) 103.7 Glucose Level 86 mg/dL (70-99) Calcium Level 8.9 mg/dL (8.5-10.1) EKG EKG [] Radiology/Procedures Radiology/Procedures [] FINDINGS: The uterus measures 10 x 6.2 x 5.6 cm. Unremarkable uterine parenchyma. Normally marginated intrauterine gestational sac measuring 1.7 x 1.0 x 1.7 cm. Yolk sac measures 0.3 cm. pole with a crown-rump length of 0.42 cm. heart rate of 104 bpm. Possible small subchorionic hemorrhage but extending along less than 25 percent gestational sac circumference. The right ovary measures 3.4 x 2.5 x 2.5 cm and the left ovary 2.4 x 2.1 x 1.9 cm. Normal Doppler flow bilaterally. Small cyst or follicle on the right. No free pelvic fluid. IMPRESSION: 1. Single live intrauterine with an estimated gestational age of 6 weeks 1 day and delivery date of 01/17/2021. Probable small subchrorionic hemorrhage but not meeting size criteria for dedicated follow-up unless there is ongoing vaginal bleeding. 2. Within normal limits ovaries. Electronically signed by: ORLIN HOUSTON MD (05/25/2020 2:28 AM) UIC-O Heart Score Risk Factors: Risk Factors: DM, Current or recent (<one month) smoker, HTN, HLP, family history of CAD, obesity. Risk Scores: Risk Factors: DM, Current or recent (<one month) smoker, HTN, HLP, family history of CAD, obesity. Course & Med Decision Making Course & Med Decision Making Patient is a 25-year-old female, at approximately 7 weeks by home test who presents for 3 days of vaginal spotting and cramping Vital signs not concerning. Physical exam noted above. Cervical check showed no blood, and closed cervical os. Laboratory analysis notable for possible urinary tract infection, but patient stated she was started on Keflex a couple days ago for this and is currently taking it. POC ultrasound showed intrauterine at approximately 6 weeks gestation. Small subchorionic hemorrhage shown. Discussed all findings with patient advised to follow-up with [facility] at her upcoming appointment in 4 days with ED findings. Gave strict return precautions to the ED. Patient grateful, verbalized understanding and agreed with plan of discharge. [] Dragon Disclaimer Dragon Disclaimer This electronic medical record was generated, in whole or in part, using a voice recognition dictation system. Departure Departure: Impression: Primary Impression: Vaginal bleeding affecting early Disposition: 01 DC HOME SELF CARE/HOMELESS Condition: GOOD Referrals: PCP,NO (PCP) Patient Instructions: Vaginal Bleeding During , [id number] Additional Instructions: Please read all the attached information. Please follow-up first thing tomorrow with your primary care physician/[facility] to update on ED visit. Please keep your upcoming appointment with your [facility] on Thursday to update on ED visit and findings. You are given a copy of your ultrasound report to take with you. Please come back to the ED with new or concerning symptoms. TAYLOR TONG MD May 25, 2020 00:32
[2020-05-25 00:53] LABS: BASO # 0.1 x10^3/uL (0.0-0.2); BASO % 1 % (0-3); EOS # 0.2 x10^3/uL (0.0-0.7); EOS % 1 % (0-3); HEMATOCRIT 40.5 % (36.0-47.0); HEMOGLOBIN 13.1 g/dL (12.0-15.5); LYMPH # 4.1 x10^3/uL (1.0-4.8); LYMPH % 25 % (24-48); MEAN CORPUSCULAR HEMOGLOBIN 25 pg (25-35); MEAN CORPUSCULAR HGB CONC 32 g/dL (31-37); MEAN CORPUSCULAR VOLUME 79 fL (79-100); MONO % 6 % (0-9); NEUT # 10.8 x10^3uL (1.8-7.7); NEUT % 67 % (31-73); PLATELET COUNT 330 x10^3/uL (140-400); RED BLOOD COUNT 5.13 x10^6/uL (3.50-5.40); WHITE BLOOD COUNT 16.1 x10^3/uL (4.0-11.0)
[2020-05-25 01:00] LABS: BILIRUBIN,URINE NEG (NEG); CLARITY,URINE CLEAR; COLOR,URINE AMBER; GLUCOSE,URINE NEG (NEG)
[2020-05-25 01:01] LABS: BACTERIA,URINE FEW /HPF (0-FEW); CALCIUM 8.9 mg/dL (8.5-10.1); CREATININE 0.7 mg/dL (0.6-1.0); GFR 103.7; NITRITE,URINE NEG (NEG); POTASSIUM 3.6 mmol/L (3.5-5.1); SQUAMOUS EPITHELIAL CELL,UR MANY /LPF; UROBILINOGEN,URINE 0.2 mg/dL (0.2 mg/dL)
--- NOTE | 2020-05-25 02:31 | RAD ---
STUDY: US US TRANSVAGINAL HISTORY: Vaginal bleeding. COMPARISON: 05/20/2020 TECHNIQUE: Pelvic ultrasound was performed with a transvaginal probe. FINDINGS: The uterus measures 10 x 6.2 x 5.6 cm. Unremarkable uterine parenchyma. Normally marginated intrauter ine gestational sac measuring 1.7 x 1.0 x 1.7 cm. Yolk sac measures 0.3 cm. pole with a crown-r ump length of 0.42 cm. heart rate of 104 bpm. Possible small subchorionic hemorrhage but extend ing along less than 25 percent gestational sac circumference. The right ovary measures 3.4 x 2.5 x 2.5 cm and the left ovary 2.4 x 2.1 x 1.9 cm. Normal Doppler sophie w bilaterally. Small cyst or follicle on the right. No free pelvic fluid. IMPRESSION: 1. Single live intrauterine with an estimated gestational age of 6 weeks 1 day and deliver y date of 01/17/2021. Probable small subchrorionic hemorrhage but not meeting size criteria for dedic ated follow-up unless there is ongoing vaginal bleeding. 2. Within normal limits ovaries. Electronically signed by: ORLIN HOUSTON MD (05/25/2020 2:28 AM) [facility]
[2020-05-25 02:52] VITALS: BP 138/87
== END 2020-05-25 03:08 | disposition home or self-care (01) ==
LOC: ER 00:09
DX: O46.93 Antepartum hemorrhage, unspecified, third trimester (principal); Z3A.28 28 weeks gestation of pregnancy
CPT/HCPCS: 36415; 76830; 80048; 81001; 84702; 85025; 87086; 99284

== ENCOUNTER 2021-08-08 19:19 | Emergency (ER) | payer MEDICAID ==
[~2021-08-08] VITALS: Ht 175.3 cm; Wt 110.0 kg
[~2021-08-08 19:19] MED LIST changes: -CLIN150C15 PO; +CLIN150C16 PO
--- NOTE | 2021-08-08 19:41 | PHYS DOC ---
Past History Past Medical History: Anemia, Anxiety, Migraines (JUSTIN BRITTON APRN) Past Surgical History: Tonsillectomy (JUSTIN BRITTON APRN) Smoking: Non-smoker Alcohol Use: None Drug Use: None (JUSTIN BRITTON APRN) General Adult HPI: HPI: Patient is a 26-year-old female who presents to the emergency department for epigastric abdominal pain that radiates to her back that started last night after she ate dinner. Patient rates her pain 7 out of 10. No treatment prior to arrival. Patient describes it as a sharp pain. She reports nausea and vomiting. Denies diarrhea, urinary symptoms, vaginal bleeding, fever. Last bowel movement was today. Patient is 2 months post vaginal delivery. (JUSTIN BRITTON APRN) Review of Systems: Review of Systems: Constitutional:see HPI GI: see HPI : see HPI Musculoskeletal: denies flank pain (JUSTIN BRITTON APRN) Allergies: Allergies: Allergies Coded Allergies Type Severity Reaction Last Updated Verified Penicillins Allergy Intermediate 05/05/19 Yes amoxicillin Allergy Intermediate 05/05/19 Yes clavulanic acid Allergy Intermediate 05/05/19 Yes (JUSTIN BRITTON APRN) Physical Exam: PE: Constitutional: Well developed, well nourished, no acute distress, non-toxic appearance. [] HENT: Normocephalic, atraumatic, bilateral external ears normal, oropharynx moist, no oral exudates, nose normal. [] Eyes: PERRL, EOMI, conjunctiva normal, no discharge. [] Neck: Normal range of motion, no tenderness, supple, no stridor. [] Cardiovascular:Heart rate regular rhythm, no murmur [] Lungs & Thorax: Bilateral breath sounds clear to auscultation [] Abdomen: Bowel sounds normal, soft,epigastric and ruq tenderness with palpation, no abdominal guarding or rigidity, no masses, no pulsatile masses. [] Skin: Warm, dry, no erythema, no rash. [] Back: No tenderness, no CVA tenderness. [] Extremities: No tenderness, no cyanosis, no clubbing, ROM intact, no edema. [] Neurologic: Alert and oriented X 3, normal motor function, normal sensory function, no focal deficits noted. [] Psychologic: Affect normal, judgement normal, mood normal. [] (TOBI,JUSTIN L INSTRUCTOR NURSE) Current Patient Data: Labs: Laboratory Tests Test 08/08/21 19:35 08/08/21 19:48 Urine Collection Type Unknown Urine Color Yellow Urine Clarity Clear Urine pH 6.0 Urine Specific [place] >=1.030 Urine Protein Neg Urine Glucose (UA) Neg mg/dL Urine Ketones (Stick) Neg mg/dL Urine Blood Neg Urine Nitrite Neg Urine Bilirubin Neg Urine Urobilinogen Dipstick 0.2 mg/dL Urine Leukocyte Esterase Trace Urine RBC Occ /HPF Urine WBC 1-4 /HPF Urine Squamous Epithelial Cells Many /LPF Urine Bacteria Few /HPF Urine Mucus Slight /LPF White Blood Count 9.6 x10^3/uL Red Blood Count 4.89 x10^6/uL Hemoglobin 11.8 g/dL Hematocrit 36.5 % Mean Corpuscular Volume 75 fL Mean Corpuscular Hemoglobin 24 pg Mean Corpuscular Hemoglobin Concent 32 g/dL Red Cell Distribution Width 19.9 % Platelet Count 314 x10^3/uL Neutrophils (%) (Auto) 69 % Lymphocytes (%) (Auto) 22 % Monocytes (%) (Auto) 7 % Eosinophils (%) (Auto) 1 % Basophils (%) (Auto) 1 % Neutrophils # (Auto) 6.6 x10^3uL Lymphocytes # (Auto) 2.1 x10^3/uL Monocytes # (Auto) 0.7 x10^3/uL Eosinophils # (Auto) 0.1 x10^3/uL Basophils # (Auto) 0.0 x10^3/uL Sodium Level 139 mmol/L Potassium Level 3.7 mmol/L Chloride Level 102 mmol/L Carbon Dioxide Level 28 mmol/L Anion Gap 9 Blood Urea Nitrogen 9 mg/dL Creatinine 0.7 mg/dL Estimated GFR (Cockcroft-Gault) 102.8 BUN/Creatinine Ratio 13 Glucose Level 78 mg/dL Calcium Level 9.1 mg/dL Total Bilirubin 0.4 mg/dL Aspartate Amino Transf (AST/SGOT) 248 U/L Alanine Aminotransferase (ALT/SGPT) 318 U/L Alkaline Phosphatase 81 U/L Total Protein 7.8 g/dL Albumin 3.4 g/dL Albumin/Globulin Ratio 0.8 Lipase 103 U/L Current Medications Medications (Trade) Dose Ordered Sig/Alex Route PRN Reason Start Time Stop Time Status Last Admin Dose Admin Sodium Chloride 1,000 ml @ 1,000 mls/hr Q1H IV 08/08/21 19:45 08/08/21 20:44 DC 08/08/21 20:20 Fentanyl Citrate (Fentanyl 2ml Vial) 50 mcg 1X ONCE IVP 08/08/21 19:45 08/08/21 19:54 DC 08/08/21 20:20 Ondansetron HCl (Zofran) 4 mg 1X ONCE IVP 08/08/21 19:45 08/08/21 19:54 DC 08/08/21 20:21 (JUSTIN BRITTON APRN) EKG: EKG: [] (JUSTIN BRITTON APRN) Radiology/Procedures: Radiology/Procedures: []PROCEDURE: CT ABDOMEN PELVIS WO CONTRAST CT scan abdomen and pelvis without contrast 08/08/2021 CLINICAL HISTORY: Abdominal pain. Nausea and vomiting. TECHNIQUE: Unenhanced, contiguous, 3 mm axial sections were obtained through the abdomen and pelvis. One or more of the following individualized dose reduction techniques were utilized for this study: 1. Automated exposure control. 2. Adjustment of the mA and/or kV according to patient size. 3. Use of iterative reconstruction technique. FINDINGS: Images through the lung bases demonstrate minimal dependent subsegmental atelectasis bilaterally. The liver parenchyma has a decreased attenuation consistent with fatty infiltration. The spleen, pancreas, adrenal glands and kidneys are within normal limits. The abdominal aorta tapers normally. Small calcified gallstones are seen within the dependent gallbladder. No free fluid is seen. There is no evidence of bowel obstruction. Air and stool are seen throughout the colon. The appendix is well- visualized and is within normal limits. Images through the pelvis demonstrate the urinary bladder to be contracted. Prominent follicle seen involving the left ovary. No free fluid is seen. Minimal S-shaped curvature of the thoracolumbar spine is seen. IMPRESSION: Cholelithiasis. No acute abnormality is seen. Electronically signed by: Soren Worley MD (08/08/2021 8:52 PM) [id number] DICTATED AND SIGNED BY: SOREN WORLEY MD DATE: 08/08/212048 CC: JUSTIN BRITTON APRN; PCP,NO ~ (JUSTIN BRITTON APRN) Heart Score: C/O Chest Pain: N/A Risk Factors: Risk Factors: DM, Current or recent (<one month) smoker, HTN, HLP, family history of CAD, obesity. Risk Scores: Score 0 - 3: 2.5% MACE over next 6 weeks - Discharge Home Score 4 - 6: 20.3% MACE over next 6 weeks - Admit for Clinical Observation Score 7 - 10: 72.7% MACE over next 6 weeks - Early Invasive Strategies (JUSTIN BRITTON APRN) Course & Med Decision Making: Course & Med Decision Making Pertinent Labs and Imaging studies reviewed. (See chart for details) Patient presents to the emergency department for epigastric abdominal pain with nausea and vomiting that started last night after she ate. Patient is also 2 months post vaginal delivery. Work-up in the ER consisted of blood work including lipase, urinalysis and CT imaging of abdomen and pelvis. Patient treated with IV fluids, nausea and pain medication. She reports improvement in her symptoms following treatment in the ER. Patient has liver enzymes that are elevated, AST is 248, ALT is 318. Patient CT scan of her abdomen and pelvis shows cholelithiasis but no obstruction and no inflammation. Patient also has fatty infiltration of her liver. Negative CBC. Urinalysis shows urinary tract infection patient be treated with an antibiotic. Patient be discharged home with pain medication and nausea medication as well. She is given referral information for a GI doctor. I discussed with patient all findings and diagnostic testing as well as the need to follow-up with PCP for further evaluation and treatment or return to the ER if any new or worsening symptoms. Strict return precautions were also discussed at length. Patient voiced understanding and agreement with the plan. Patient is hemodynamically stable at the time of disposition. (JUSTIN BRITTON APRN) Dragon Disclaimer: Dragon Disclaimer: This electronic medical record was generated, in whole or in part, using a voice recognition dictation system. (JUSTIN BRITTON APRN) Attending Co-Sign The patient was seen and interviewed as well as examined at the bedside. The chart was reviewed. The case was discussed. Agree with the plan of care. (SENDY JULIEN DO) Departure Departure: Impression: Primary Impression: Urinary tract infection Qualified Codes: N30.00 - Acute cystitis without hematuria Additional Impression: Cholelithiases Qualified Codes: K80.80 - Other cholelithiasis without obstruction Disposition: HOME / SELF CARE / HOMELESS Condition: GOOD Referrals: PCP,NO (PCP) Patient Instructions: Cholelithiasis, Urinary Tract Infection Additional Instructions: You are seen in the emergency department today for abdominal pain. As we discussed, you have gallbladder stones but no gallbladder inflammation or infection. You are being discharged home with pain medication that you can take. This medication is hydrocodone and Tylenol combination tablet. This medication may cause sedation so do not take any need to be alert, driving a vehicle or with alcohol. You are also being discharged home with nausea medication. Take this as needed. You are noted to have a urinary tract infection which will be treated with an antibiotic. Dont take this medication if you were told your child has a g6pd deficiency. Please start and finish the antibiotic completely. Increase your fluids and avoid bladder irritants like caffeine sugary beverages and alcohol. Follow-up with your primary care provider tomorrow regarding your ER visit. You will need to follow-up with a GI doctor if you continue to have abdominal pain. 1 was attached to this discharge paperwork. Return to the emergency department if you develop worsening of your abdominal pain, intractable nausea or vomiting, high fevers refractory to treatment or any new or worsening concerns. Scripts Hydrocodone Bit/Acetaminophen (HYDROCODONE-APAP 5-325 ) 1 Each Tablet 1 TAB PO PRN Q6HRS PRN for PAIN for 2 Days, #8 TAB 0 Refills Prov: JUSTIN BRITTON INSTRUCTOR NURSE 08/08/21 Nitrofurantoin Monohyd/M-Cryst (MACROBID 100 MG CAPSULE) 100 Mg Capsule 100 CAP PO BID for UTI for 5 Days, #1000 CAP Prov: JUSTIN BRITTON INSTRUCTOR NURSE 08/08/21 Ondansetron (ONDANSETRON ODT) 4 Mg Tab.rapdis 1 TAB PO PRN Q6-8HRS for nausea for 7 Days, #28 TAB 0 Refills Prov: JUSTIN BRITTON INSTRUCTOR NURSE 08/08/21 JUSTIN BRITTON APRN August 08, 2021 19:41 SENDY JULIEN DO August 09, 2021 06:03
[2021-08-08] MEDS ORDERED: ONDANSETRON PF 4 MG/2 ML VIAL. IVP ONE (19:45)
[2021-08-08] MEDS ORDERED: IV NORMAL SALINE 1,000ML 1,000 ML IV SCH (19:45)
[2021-08-08 20:06] LABS: BASO % 1 % (0-3); EOS # 0.1 x10^3/uL (0.0-0.7); EOS % 1 % (0-3); HEMATOCRIT 36.5 % (36.0-47.0); HEMOGLOBIN 11.8 g/dL (12.0-15.5); LYMPH # 2.1 x10^3/uL (1.0-4.8); LYMPH % 22 % (24-48); MEAN CORPUSCULAR HEMOGLOBIN 24 pg (25-35); MEAN CORPUSCULAR HGB CONC 32 g/dL (31-37); MEAN CORPUSCULAR VOLUME 75 fL (79-100); MONO # 0.7 x10^3/uL (0.0-1.1); MONO % 7 % (0-9); NEUT # 6.6 x10^3uL (1.8-7.7); NEUT % 69 % (31-73); PLATELET COUNT 314 x10^3/uL (140-400); RED BLOOD COUNT 4.89 x10^6/uL (3.50-5.40); RED CELL DISTRIBUTION WIDTH 19.9 % (11.5-14.5); WHITE BLOOD COUNT 9.6 x10^3/uL (4.0-11.0)
[2021-08-08 20:13] LABS: CALCIUM 9.1 mg/dL (8.5-10.1); CREATININE 0.7 mg/dL (0.6-1.0); GFR 102.8; POTASSIUM 3.7 mmol/L (3.5-5.1)
[2021-08-08 20:16] LABS: COLOR,URINE YELLOW
[2021-08-08 20:17] LABS: ALBUMIN 3.4 g/dL (3.4-5.0); ALBUMIN/GLOBULIN RATIO 0.8 (1.0-1.7); TOTAL BILIRUBIN 0.4 mg/dL (0.2-1.0); TOTAL PROTEIN 7.8 g/dL (6.4-8.2)
[2021-08-08 20:17] LABS: BACTERIA,URINE FEW /HPF (0-FEW); CLARITY,URINE CLEAR; GLUCOSE,URINE NEG (NEG); NITRITE,URINE NEG (NEG); RBC,URINE OCC /HPF (0-2); SQUAMOUS EPITHELIAL CELL,UR MANY /LPF; UROBILINOGEN,URINE 0.2 mg/dL (0.2 mg/dL)
--- NOTE | 2021-08-08 20:55 | RAD ---
CT scan abdomen and pelvis without contrast 08/08/2021 CLINICAL HISTORY: Abdominal pain. Nausea and vomiting. TECHNIQUE: Unenhanced, contiguous, 3 mm axial sections were obtained through the abdomen and pelvis. One or more of the following individualized dose reduction techniques were utilized for this study: 1. Automated exposure control. 2. Adjustment of the mA and/or kV according to patient size. 3. Use of iterative reconstruction technique. FINDINGS: Images through the lung bases demonstrate minimal dependent subsegmental atelectasis bilate rally. The liver parenchyma has a decreased attenuation consistent with fatty infiltration. The spleen, panc reas, adrenal glands and kidneys are within normal limits. The abdominal aorta tapers normally. Small calcified gallstones are seen within the dependent gallbla dder. No free fluid is seen. There is no evidence of bowel obstruction. Air and stool are seen throug hout the colon. The appendix is well-visualized and is within normal limits. Images through the pelvis demonstrate the urinary bladder to be contracted. Prominent follicle seen i nvolving the left ovary. No free fluid is seen. Minimal S-shaped curvature of the thoracolumbar spine is seen. IMPRESSION: Cholelithiasis. No acute abnormality is seen. Electronically signed by: Soren Zhang MD (08/08/2021 8:52 PM) [id number]
[2021-08-08] MEDS ORDERED: NITR100C62 PO (21:07)
[2021-08-08] MEDS ORDERED: ONDA4TAB12 PO (21:07)
[2021-08-08] MEDS ORDERED: HYDR-2155 PO (21:07)
[2021-08-08 21:23] VITALS: BP 132/94
== END 2021-08-08 21:23 | disposition home or self-care (01) ==
LOC: ER 19:19
DX: N30.00 Acute cystitis without hematuria (principal); K80.80 Other cholelithiasis without obstruction; G43.909 Migraine, unspecified, not intractable, without status migrainosus; Z86.2 Personal history of diseases of the blood and blood-forming organs and certain disorders involving the immune mechanism; Z88.0 Allergy status to penicillin; Z88.1 Allergy status to other antibiotic agents
CPT/HCPCS: 36415; 74176; 80053; 81001; 83690; 85025; 87086; 96361; 96374; 96375; 99284; J2405; J3010; J7030